=== PATIENT | male | born 1965 | race Caucasian/White ===

== ENCOUNTER 2019-02-03 06:37 | Emergency (ER) | payer BC, OTHER ==
[~2019-02-03] VITALS: Ht 165.1 cm; Wt 75.0 kg
[~2019-02-03 06:37] MED LIST: ASPI325T32 PO; BENA20TA4 PO; BRIM15DR7 BOTH EYES; ERGO500014 PO; LANT3I SC
[2019-02-03 06:41] VITALS: Ht 165.1 cm; Wt 75.0 kg
[2019-02-03] MEDS ORDERED: ONDANSETRON 4 MG INJ IV STA ×2 (06:47→10:49)
[2019-02-03] MEDS ORDERED: ASPIRIN 325 MG TAB PO STA (06:47)
[2019-02-03] MEDS ORDERED: morphine 4 MG/ML VIAL IV STA ×2 (06:47→10:49)
--- NOTE | 2019-02-03 06:55 | ERD ---
ER Documentation Chief Complaint Chief Complaint cp onset 0600, sob HPI This is a 53-year-old male with a past medical history of [id number] diabetes mellitus hypertension on benazepril metformin and takes 81 mg of aspirin on a daily basis. The patient had a cardiac stent placed at [facility], [place] in 2005. He does not smoke tobacco. The patient indicates that roughly 5 hours prior to arrival, at 1 AM, he developed a sudden onset of chest pressure. He stated it was left substernal and did radiate to his left arm neck but not to the back. He stated it was 10 out of 10 in intensity. There is no alleviating or exacerbating factors. He immediately came to the emergency department to be further evaluated. He stated he had associated symptoms of nausea and shortness of breath. He denies any recent travel or prolonged immobilization. He has no swelling of his lower extremities or calf tenderness. He said he became very sweaty and therefore his daughter immediately brought him to the emergency department for further evaluation ROS All systems reviewed and are negative except as per history of present illness. Medications Home Meds Reported Medications Benazepril Hcl* (Benazepril Hcl*) 20 Mg Tablet, 20 MG PO DAILY, #30 TAB 02/03/19 Aspirin (Low Dose Aspirin) 81 Mg Tablet.dr, 81 MG PO DAILY, #30 TAB 02/03/19 Metformin Hcl* (Metformin Hcl*) 1,000 Mg Tablet, 1000 MG PO WITH BREAKFAST DINNE, #60 TAB 02/03/19 Discontinued Reported Medications Insulin Glargine* (Lantus*) 100 Unit/Ml Soln, 10 UNIT SC HS, EA 07/19/15 Brimonidine Tartrate* (Brimonidine Tartrate*) 0.2%-15ML Drop Opht, 1 DROP BOTH EYES BID, #1 EA 07/19/15 Ergocalciferol* (Drisdol* (Vitamin D2)) 50,000 Unit Capsule, 67143 UNIT PO Q7D, CAP 07/19/15 Aspirin (Aspirin) 325 Mg Tablet.dr, 325 MG PO DAILY 07/19/15 Benazepril Hcl* (Benazepril Hcl*) 20 Mg Tablet, 20 MG PO DAILY, #30 TAB 07/19/15 Allergies Allergies: Coded Allergies: No Known Allergy (Unverified , 02/03/19) PMhx/Soc History of Surgery: Yes Anesthesia Reaction: No Hx Neurological Disorder: No Hx Respiratory Disorders: No Hx Cardiac Disorders: No Hx Psychiatric Problems: No Hx Miscellaneous Medical Probl: No Hx Alcohol Use: No Hx Substance Use: No Hx Tobacco Use: Yes (only on occasions) Physical Exam Vitals Vital Signs Date Temp Pulse Resp B/P (MAP) Pulse Ox O2 O2 Flow FiO2 Time Delivery Rate 02/03/19 92 22 142/79 98 Nasal 2.0 09:01 (100) Cannula 02/03/19 90 25 149/69 98 Nasal 08:38 (95) Cannula 02/03/19 92 25 149/65 98 Nasal 2.0 08:30 (93) Cannula 02/03/19 98.6 90 17 135/77 98 Nasal 2.0 07:21 (96) Cannula 02/03/19 91 17 169/83 96 Nasal 2.0 07:06 (111) Cannula 02/03/19 Nasal 2 07:06 Cannula 02/03/19 97.7 96 18 180/84 99 06:41 (116) Physical Exam Constitutional:Well-developed. Well-nourished. Patient appears to be in discomfort HEENT:Normocephalic. Atraumatic.Pupils were equal round reactive to light. Moist mucous membranes.No tonsillar exudates. Neck: No nuchal rigidity. No lymphadenopathy. No posterior cervical spine tenderness or step-offs. Respiratory: Not using accessory muscles of respiration.Lungs were clear to auscultation bilaterally. No rhonchi. No rales. No wheezing. Cardiovascular: Regular rate regular rhythm. Systolic murmur heard between the first and second intercostal spaces no radiation to the neck. No rubs were appreciated.S1, S2 normal. Distal pulses are palpable 2+ bilaterally. GI: Abdomen was soft. Nontender. Non Distended. No pulsatile abdominal masses or bruits. No rebound. No guarding. Bowel sounds were present and normal. Muscle skeletal: Full range of motion of both the upper and lower extremities bilaterally.Normal muscle tone.No assymetrical calf tenderness or swelling. Skin: Diaphoretic. No petechia, no purpura. No lesions on the palms or the soles of the feet. No maculopapular rash. NEURO: Patient was alert, awake, orientated x3.No facial droop. Gait observed and normal with no ataxia.Speech had regular rate and rhythm. No focal neurological deficits. Result Diagram: 02/03/19 0659 02/03/19 0659 Results 24 hrs Laboratory Tests Test 02/03/19 06:59 White Blood Count 11.6 10^3/ul Red Blood Count 4.47 10^6/ul Hemoglobin 13.4 g/dl Hematocrit 39.9 % Mean Corpuscular Volume 89.3 fl Mean Corpuscular Hemoglobin 30.0 pg Mean Corpuscular Hemoglobin Concent 33.6 g/dl Red Cell Distribution Width 11.6 % Platelet Count 255 10^3/UL Mean Platelet Volume 9.4 fl Immature Granulocytes % 0.500 % Neutrophils % 71.7 % Lymphocytes % 18.7 % Monocytes % 6.8 % Eosinophils % 2.0 % Basophils % 0.3 % Nucleated Red Blood Cells % 0.0 /100WBC Immature Granulocytes # 0.060 10^3/ul Neutrophils # 8.4 10^3/ul Lymphocytes # 2.2 10^3/ul Monocytes # 0.8 10^3/ul Eosinophils # 0.2 10^3/ul Basophils # 0.0 10^3/ul Nucleated Red Blood Cells # 0.0 10^3/ul Prothrombin Time 10.9 Sec Prothrombin Time Ratio 0.9 INR International Normalized Ratio 0.77 Activated Partial Thromboplast Time 27.5 Sec Sodium Level 137 mmol/L Potassium Level 4.6 mmol/L Chloride Level 100 mmol/L Carbon Dioxide Level 28 mmol/L Anion Gap 9 Blood Urea Nitrogen 29 mg/dl Creatinine 1.19 mg/dl Est Glomerular Filtrat Rate mL/min > 60 mL/min Glucose Level 342 mg/dl Calcium Level 9.2 mg/dl Total Bilirubin 0.4 mg/dl Direct Bilirubin 0.00 mg/dl Indirect Bilirubin 0.4 mg/dl Aspartate Amino Transf (AST/SGOT) 72 IU/L Alanine Aminotransferase (ALT/SGPT) 31 IU/L Alkaline Phosphatase 172 IU/L Creatine Kinase 506 IU/L Creatine Kinase Index 3.2 Creatinine Kinase MB (Mass) 16.20 ng/ml Troponin I 22.500 ng/ml B-Type Natriuretic Peptide 1170 PG/ML Total Protein 7.0 g/dl Albumin 3.7 g/dl Globulin 3.30 g/dl Albumin/Globulin Ratio 1.12 Current Medications Medications Dose Sig/Sunshine Start Time Status Last (Trade) Ordered Route PRN Stop Time Admin Dose Reason Admin Aspirin 325 mg ONCE STAT 02/03/19 DC 02/03/19 (Aspirin) PO 06:47 06:58 02/03/19 06:51 1 tab Q5M UP TO 3 02/03/19 02/03/19 Nitroglycerin DOSES PRN 07:00 07:00 SL .CHEST (Nitroglyceri PAIN n (Sl Tab) 0.4 Mg) Morphine 4 mg ONCE STAT 02/03/19 DC 02/03/19 Sulfate IV 06:47 07:00 (morphine) 02/03/19 06:51 Ondansetron 4 mg ONCE STAT 02/03/19 DC 02/03/19 HCl (Zofran IV 06:47 07:00 Inj) 02/03/19 06:51 IV Flush 10 ml STK-MED 02/03/19 DC 02/03/19 (NS 10 ml) ONCE .ROUTE 07:50 08:15 02/03/19 07:51 Sodium 100 ml @ ud STK-MED 02/03/19 DC 02/03/19 Chloride ONCE .ROUTE 07:50 08:16 02/03/19 07:51 Iohexol 100 ml @ ud STK-MED 02/03/19 DC 02/03/19 ONCE .ROUTE 07:50 08:15 02/03/19 07:51 Heparin 4,500 unit ONCE STAT 02/03/19 DC 02/03/19 Sodium IV 07:51 07:58 (Porcine) 02/03/19 07:53 (Heparin (1000 Units/ml)) Heparin 250 ml @ 0 ONCE STAT 02/03/19 DC 02/03/19 Sodium mls/hr IV 07:51 08:00 (Porcine) 02/03/19 07:53 Procedures/MDM The patient presented to the emergency department with chest pain. My clinical evaluation and workup was to distinguish minor causes of chest pain from acute life threatening conditions such as myocardial infarction, pulmonary embolism, aortic dissection, esophageal rupture, cardiac tamponade. The patient was placed on a bus driver/monitor and continuous pulse oximetry. IV access established by nursing staff. The patient was given aspirin and nitroglycerin. This did not improve his pain. Therefore he was given intravenous morphine and Zofran. 12 Lead EKG tracing ordered and reviewed by myself showed: Normal sinus rhythm of 94 bpm and no arrhythmia. IL interval normal. QRS duration normal. No ST segment elevation. Q waves present in the inferior lead to [address] segment depression. No changes consistent with acute ischemia. Patient had a repeat EKG. 12 Lead EKG tracing ordered and reviewed by myself showed: Normal sinus rhythm of 90 bpm and no arrhythmia. IL interval normal. QRS duration normal. No ST segment elevation. Q waves present inferior leads II, III and aVF. No ST segment depression. No changes consistent with acute ischemia. I did obtain a 1 view chest radiograph and reviewed this from a prior chest radiograph in 2016 with no evidence of widened mediastinum as the mediastinum appeared to be the same size. Therefore my clinical suspicion for an aortic dissection was low. The patient was started on heparin. A CT angiogram of the patient's chest was obtained and there is no evidence of pulmonary embolism. The patient's troponin was significantly elevated at 22.5 with an elevated CK- MB. Therefore at this time the patient was started on a heparin bolus and drip for unstable angina as he still was experiencing active chest pain. Given that her cardiac microbiology laboratory manager is not currently in use the patient will be transferred for higher level of care. I have spoken with [employer] in order to perform a non-STEMI transfer. They indicated that we would have to go through insurance and receive approval for the transfer. However at this time I indicated that the patient was in serious condition. He met criteria for [employer] Operations Manager given that he was experiencing active chest pain despite receiving intravenous morphine and was placed on a heparin drip. They were able to put me through to the emergency room and I spoke with the cutting inspector. We have faxed over as they requested the EKG and ancillary laboratory work at 8:05 AM. I am waiting to hear back from their design printer balloon for the transfer process. The design printer balloon returned my call at 8:11 AM after reviewing the EKG and ancillary laboratory work. He stated he did not feel the patient met criteria at this time for interventional emergent catheterization with PCI. He stated to treat the patient medically and stabilized the patient. Therefore we will have to go through the patient's insurance to facilitate the transfer for higher level of care. The patient was hyperglycemic without ketosis. Critical Care: Time: 90 minutes Treatments/Evaluations: Close monitoring and treatment of unstable vital signs, cardiorespiratory, and neurologic status, while maintaining tight balance of fluid, respiratory, and cardiac interventions. Time does not include performing any of the above billable procedures. Departure Diagnosis: Primary Impression: Unstable angina Condition: Serious GABI KHALIL MD Feb 03, 2019 06:54
[2019-02-03] MEDS ORDERED: NITROGLYCERIN (SL) 0.4 MG TAB SL PRN (07:00)
[2019-02-03] MEDS ORDERED: SOD CHLORIDE 0.9% 100 ML ONE (07:50)
[2019-02-03] MEDS ORDERED: IOHEXOL 100 ML ONE (07:50)
[2019-02-03] MEDS ORDERED: HEPARIN 25000 UNITS/250 ML 250 ML IV STA (07:51)
[2019-02-03] MEDS ORDERED: HEPARIN 1000 UNITS/ML 10 ML INJ IV STA (07:51)
[2019-02-03] MEDS ORDERED: METF100010 PO (07:53)
[2019-02-03] MEDS ORDERED: ASPI81TA52 PO (07:53)
[2019-02-03] MEDS ORDERED: BENA20TA4 PO (07:54)
[2019-02-03 10:45] VITALS: BP 154/90; PULSE 92; RESP 18
== END 2019-02-03 10:59 | disposition home or self-care (01) ==
LOC: E/R 06:37
DX: I20.0 Unstable angina (principal); I10 Essential (primary) hypertension; Z79.82 Long term (current) use of aspirin; Z79.84 Long term (current) use of oral hypoglycemic drugs
CPT/HCPCS: 36415; 71045; 71275; 80053; 82550; 82553; 83880; 84484; 85025; 85610; 85730; 93005; 96374; 96375; 96376; J1644; J2270; J2405; Q9967; Z7502; Z7610

== ENCOUNTER 2019-03-16 19:36 | Emergency (ER) | payer OTHER ==
[~2019-03-16] VITALS: Ht 165.1 cm; Wt 78.6 kg
[~2019-03-16 19:36] MED LIST changes: -ASPI325T32 PO; +ASPI81TA52 PO; -BRIM15DR7 BOTH EYES; -ERGO500014 PO; -LANT3I SC; +METF100010 PO
[2019-03-16 19:44] VITALS: BP 121/85; PULSE 81; RESP 24; Ht 165.1 cm; Wt 78.6 kg
== END 2019-03-17 03:12 | disposition left against medical advice (07) ==
LOC: EDBD 19:36 → MERGE 19:36 → E/R 19:36
DX: F10.929 Alcohol use, unspecified with intoxication, unspecified (principal); G93.40 Encephalopathy, unspecified; R40.2122 Coma scale, eyes open, to pain, at arrival to emergency department; R40.2232 Coma scale, best verbal response, inappropriate words, at arrival to emergency department; R40.2342 Coma scale, best motor response, flexion withdrawal, at arrival to emergency department
CPT/HCPCS: 36415; 70450; 80053; 80307; 81001; 85025; 93005; Z7502

== ENCOUNTER 2019-03-17 18:22 | Emergency (ER) | payer OTHER ==
[~2019-03-17] VITALS: Ht 172.7 cm; Wt 89.0 kg
[2019-03-17] MEDS ORDERED: ONDANSETRON 4 MG INJ IV STA (18:26)
[2019-03-17] MEDS ORDERED: LACTATED RINGER'S 1,000 ML IV STA (18:26)
[2019-03-17 18:32] VITALS: Ht 172.7 cm; Wt 89.0 kg
[2019-03-17 20:26] VITALS: BP 154/97; PULSE 90; RESP 19
== END 2019-03-18 00:41 | disposition left against medical advice (07) ==
LOC: E/R 18:22
DX: F10.129 Alcohol abuse with intoxication, unspecified (principal); I10 Essential (primary) hypertension; E11.9 Type 2 diabetes mellitus without complications; I25.10 Atherosclerotic heart disease of native coronary artery without angina pectoris; E86.0 Dehydration; Z79.82 Long term (current) use of aspirin; Z79.84 Long term (current) use of oral hypoglycemic drugs
CPT/HCPCS: 71045; 80053; 80307; 83690; 84484; 85025; 96374; J2405; J7120; Z7502